=== PATIENT | female | born 1980 | race Caucasian/White ===

== ENCOUNTER 2022-03-08 16:58 | Emergency (ER) | payer MEDICAID ==
[~2022-03-08] VITALS: Ht 182.9 cm; Wt 107.3 kg
[2022-03-08 17:09] VITALS: BP 126/74
[2022-03-08] MEDS ORDERED: ibuprofen 200mg tablet PO ONE (18:55)
== END 2022-03-08 19:33 | disposition home or self-care (01) ==
LOC: ER 17:00
DX: M54.32 Sciatica, left side (principal)
CPT/HCPCS: 99282